=== PATIENT | male | born 1975 | race Two or more races ===

== ENCOUNTER 2021-05-05 09:23 | Inpatient (IN) | payer OTHER ==
[~2021-05-05] VITALS: Ht 177.8 cm; Wt 89.4 kg
--- NOTE | 2021-05-05 07:30 | NUR ---
RN NOTE PATIENT RECEIVED AWAKE ALERT AND ORIENTED X4, ON O2 VIA NC @2LPM O2 SAT OF 98%, ON TELE MONITOR SR NO COMPLAINS OF CHEST PAIN AT THIS TIME, CONTINENT ON BOWEL AND BLADDER, NO S/S OF BLEEDING NOTED, SAFETY MEASURES OBSERVED, CALL LIGHT WITHIN REACH, BED WHEELS LOC. WILL CONTINUE TO MONITOR. Addendum: 05/05/21 at 1815 by SHIRA JEFFERS RN ERROR
--- NOTE | 2021-05-05 09:35 | NUR ---
DR SALAZAR AT THE BEDSIDE
--- NOTE | 2021-05-05 09:40 | NUR ---
CALLED POISON CONTROL [phone] DR. SALAZAR SPEAKING WITH PENNY. RECOMMEND: ATIVAN 50 OF CHAR[place] GO LIGHTLY 1-2 LITER PER HOUR NG OR OG ANTIEMETICS CHECK BOWEL SOUNDS. ABDOMINAL CT NEGATIVE DOES NOT R/O INGESTION. BENZO FOR SEAZURE. LABS CK CMP UDS TY & ASA CONVEYOR TECHNICIAN. TEMP IF >104 PROTECT AIRWAY & BREATHING MINIMUM 6HOURS IF BAG FOUND IN CT THEN OBSERVE UNTIL IT PASSES
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
[2021-05-05] MEDS ORDERED: LORAZEPAM INJ 2 MG/ML VIAL ONE (09:56)
[2021-05-05] MEDS ORDERED: LORAZEPAM INJ 2 MG/ML VIAL IM ONE (10:00)
[2021-05-05 10:01] LABS: BASOPHILS # (AUTO) 0.1 K/uL (0.0-0.2); BASOPHILS % (AUTO) 1.2 % (0.0-2.0); EOSINOPHILS % (AUTO) 0.3 % (0.0-6.0); HEMATOCRIT 42 % (39-51); LYMPHOCYTES # (AUTO) 0.9 K/uL (0.8-4.8); LYMPHOCYTES % (AUTO) 13.7 % (20.0-44.0); MEAN CORPUSCULAR HGB CONC 34 g/dl (31.0-36.0); MEAN CORPUSCULAR VOLUME 83 fL (80-96); MONOCYTES # (AUTO) 0.3 K/uL (0.1-1.30); MONOCYTES % (AUTO) 4.7 % (2.0-12.0); NEUTROPHILS # (AUTO) 5.2 K/uL (1.8-8.9); NEUTROPHILS % (AUTO) 80.1 % (43.0-81.0); PLATELET COUNT (AUTO) 236 K/uL (150-450); RED BLOOD CELL COUNT(AUTO) 5.04 MIL/uL (4.5-6.0); WHITE BLOOD COUNT (AUTO) 6.4 K/uL (4.3-11.0)
[2021-05-05 10:10] LABS: CALCIUM, SERUM 9.1 mg/dL (8.5-10.1); CARBON DIOXIDE 26 mmol/L (21-32); CHLORIDE 102 mmol/L (98-107); CREATININE 1.3 mg/dL (0.6-1.3); GLUCOSE 61 mg/dL (74-106); POTASSIUM 4.1 mmol/L (3.5-5.1); SODIUM SERUM 138 mmol/L (136-145); UREA NITROGEN, BLOOD 25 mg/dL (7-18)
[2021-05-05 10:16] LABS: ALANINE AMINOTRANSFERASE 38 U/L (12-78); ALBUMIN 4.1 g/dL (3.4-5.0); ALKALINE PHOSPHATASE 97 U/L (46-116); ASPARTATE AMINOTRANSFERASE 35 U/L (15-37); BILIRUBIN,DIRECT 0.3 mg/dL (0.0-0.2); BILIRUBIN,TOTAL 1.6 mg/dL (0.2-1.0)
--- NOTE | 2021-05-05 10:16 | NUR ---
STARTED LAC G 18 AND SALINE LOCKED IT.
--- NOTE | 2021-05-05 10:16 | NUR ---
URINE COLLECTED AND SENT TO THE LAB
[2021-05-05 10:17] LABS: ACETAMINOPHEN < 10 ug/ml (10-30); ALCOHOL, BLOOD < 3 mg/dL (0-0)
[2021-05-05 10:26] LABS: BILIRUBIN,URINE SMALL (NEGATIVE); COLOR,URINE ORANGE (YELLOW); LEUKOCYTE ESTERASE ,URINE Negative (NEGATIVE); NITRITE, URINE Negative (NEGATIVE); PROTEIN,URINE 100 mg/dl (NEGATIVE); UGLUCOSE Negative (NEGATIVE); UROBILINOGEN,URINE 0.2 EU/dL (0.2)
[2021-05-05] MEDS ORDERED: IV NS 0.9% 250 ML IV ONE (10:26)
[2021-05-05] MEDS ORDERED: CT SWABBABLE VALVE TRANS SET 1 EA INFUS.SET MC ONE (10:26)
[2021-05-05] MEDS ORDERED: IOHEXOL-300 100 ML VIAL IV ONE (10:26)
[2021-05-05] MEDS ORDERED: ACTIVATED CHARCOAL 25 GM/120 ML TUBE PO ONE (10:30)
--- NOTE | 2021-05-05 10:40 | NUR ---
MOVE SHEET SUBMITTED
--- NOTE | 2021-05-05 10:46 | NUR ---
COVID SWAB DONE AND SENT TO THE LAB
[2021-05-05 11:01] LABS: BACTERIA,URINE None seen /HPF (None Seen); RBC,URINE NONE SEEN /HPF (0-2); SQUAMOUS EPITHELIAL CELL,UR None Seen /HPF (None Seen); WBC,URINE NONE SEEN /HPF (0-3)
[2021-05-05] MEDS ORDERED: FLUO20CA36 PO (11:14)
[2021-05-05] MEDS ORDERED: ACTIVATED CHARCOAL 25 GM/120 ML TUBE ONE (11:15)
--- NOTE | 2021-05-05 12:00 | NUR ---
[facility] CALLED [employer] MANAGER PAGED.
--- NOTE | 2021-05-05 12:23 | NUR ---
NURSING SUP GAVE 107.
--- NOTE | 2021-05-05 12:40 | NUR ---
REPORT GIVEN TO NURSE CAREY FROM TELE/KATIE FLOOR
--- NOTE | 2021-05-05 13:28 | NUR ---
THE PATIENT IS TRANSFERED TO ASSIGNED ROOM IN STABLE CONDITION AND PER ACLS POLICY.
--- NOTE | 2021-05-05 13:40 | NUR ---
RN NOTE RECEIVED PATIENT FROM ER, WILL CONTINUE PLAN OF CARE, PATIENT VTS WNL.
[2021-05-05] MEDS ORDERED: ACETAMINOPHEN 325 MG TABLET PO PRN (14:30)
[2021-05-05] MEDS ORDERED: MAG HYDROX/AL HYDROX/SIMETH 30 ML UDC PO PRN (14:30)
[2021-05-05] MEDS ORDERED: ONDANSETRON HCL/PF 4 MG/2 ML VIAL IVP PRN (14:30)
[2021-05-05] MEDS: IV NS 0.9% 1,000 ML IV PRN ×2 (14:36→21:57)
--- NOTE | 2021-05-05 15:37 | NUR ---
RN NOTE PATIENT TO START WITH AARONLY ABEL MARROQUIN, ORDERS NOTED AND CARRIED OUT.
[2021-05-05 16:00] VITALS: BP 145/78
[2021-05-05] MEDS ORDERED: PEG 3350/NA SULF,BICARB,CL/KCL 4,000 ML BOTTLE PO ONE (17:00)
--- NOTE | 2021-05-05 18:41 | NUR ---
RN NOTE PATIENT COOPERATIVE TO PLAN OF CARE, ALERT AND ORIENTED X3, AWAKE AND ABLE TO VERBALIZE NEEDS, ON ROOM AIR BREATHING EVEN AND UNLABORED, WITH IV LEFT HAND AC NS @150 CC/HR PATENT INFUSING WELL. ON GOLYTELY PO PATIENT TOLERATING WELL, NO S/S OF WITHDRAWAL SYNDROME AT THIS TIME, SAFETY MEASURES OBSERVED, BED WHEELS LOCK, CALL LIGHT WITHIN REACH, WILL CONTINUE TO MONITOR AND ENDORSE TO NOC SHIFT.
--- NOTE | 2021-05-05 19:20 | NUR ---
RN NOTE RECEIVED PATIENT IN BED RESTING ALERT ORIENTED X3 VERBALLY RESPONSIVE ON ROOM AIR O2:98% IV SITE IS ON LEFT AC INTACT PATENT ON IV HYDRATION NS 150CC/HR CONTINET TO BOWEL/BLADDER SAFETY MEASURE IMPLEMENT BED IN LOW POSITON AND LOCKED CALL LIGHT WITHIN REACH,MONITORING FOR WITHDRAW SYMPTOMS CONTINUE TO MONITOR.
[2021-05-05 20:00] VITALS: BP 126/75
[2021-05-06] VITALS: BP 121/67
[2021-05-06 04:00] VITALS: BP 126/77
[2021-05-06] MEDS: IV NS 0.9% 1,000 ML IV PRN (04:52)
[2021-05-06 06:28] LABS: EOSINOPHILS % (AUTO) 1.1 % (0.0-6.0); HEMATOCRIT 36 % (39-51); HEMOGLOBIN 12.5 g/dL (13.5-17.5); LYMPHOCYTES # (AUTO) 1.2 K/uL (0.8-4.8); LYMPHOCYTES % (AUTO) 28.1 % (20.0-44.0); MEAN CORPUSCULAR HGB CONC 34 g/dl (31.0-36.0); MEAN CORPUSCULAR VOLUME 83 fL (80-96); MONOCYTES # (AUTO) 0.4 K/uL (0.1-1.30); MONOCYTES % (AUTO) 9.5 % (2.0-12.0); NEUTROPHILS # (AUTO) 2.6 K/uL (1.8-8.9); NEUTROPHILS % (AUTO) 60.3 % (43.0-81.0); PLATELET COUNT (AUTO) 191 K/uL (150-450); RED BLOOD CELL COUNT(AUTO) 4.37 MIL/uL (4.5-6.0); WHITE BLOOD COUNT (AUTO) 4.2 K/uL (4.3-11.0)
--- NOTE | 2021-05-06 06:56 | NUR ---
RN NOTE PATIENT REMAINS ON ALERT ORIENTED X3 VERBALLY RESPONSIVE NO SOB NOT ACUTE DISTRESS NOTED IV SITE IS ON LEFT AC INTACT PATENT ON IV HYDRATION NS 150 CC/HR KEPT CLEAN AND DRY ALL THE TIME,KEPT COMFORTABLE,ALL NEEDS MET ENDORSE NEXT COMING SHIFT FOR CONTINUATION OF CARE.
[2021-05-06 07:12] LABS: CALCIUM, SERUM 7.9 mg/dL (8.5-10.1); CREATININE 0.8 mg/dL (0.6-1.3); PHOSPHORUS 3.1 mg/dL (2.5-4.9); POTASSIUM 4.1 mmol/L (3.5-5.1)
--- NOTE | 2021-05-06 07:30 | NUR ---
BUSINESS ADMINISTRATION PROGRAM CHAIR NOTE PATIENT IN RESTROOM, JUST HAD NUMBER 2, ALERT ORIENTED X3 VERBALLY RESPONSIVE ON ROOM AIR O2:97%, NO SOB, RESPIRATION UNLABORED, DENIES PAIN AT THIS TIME, IV SITE IS ON LEFT AC INTACT PATENT ON IV HYDRATION NS 150CC/HR, BRP, CARDIAC DIET. NO SKIN ISSUES. SAFETY MEASURE IMPLEMENT BED IN LOW POSITION AND LOCKED, POC DISCUSSED, CALL LIGHT WITHIN REACH,MONITORING FOR WITHDRAWAL SYMPTOMS, WILL CONTINUE TO MONITOR.
[2021-05-06 08:00] VITALS: BP 115/79
--- NOTE | 2021-05-06 09:55 | NUR ---
RN NOTES RECEIVED A CALL FROM POISON CONTROL [[phone]]. SPOKE WITH MINAL, UPDATE GIVEN, PATIENT COULD CLEARED FOR TOXICOLOGY. CASE CLOSED.
--- NOTE | 2021-05-06 10:37 | NUR ---
RN NOTES PATIENT PULLED OUT HIS IV, DRESSED UP AND WENT AMA DESPITE EXPLAINING THE RISK AND BENEFIT. PATIENT ALERT, ORIENTED, NOT IN ANY DISTRESS. AMA PAPER SIGNED. PATIENT AMBULATED TO [facility]. BELONGINGS RETURNED, PAPER WORKS SIGNED. ADVISED TO GO TO NEAREST EMERGENCY ROOM FOR ANY UNTOWARD SYMPTOMS. NURSING GRUBBER, CHARGE NURSE AND VERONICA MARROQUIN CELLULAR EQUIPMENT INSTALLER INFORMED. Addendum: 05/06/21 at 1237 by JAZMINE GOYAL RN ADDENDUM INCIDENT REPORT ON FILE Unique Id: [id number]
== END 2021-05-06 10:40 | disposition left against medical advice (07) | DRG 812 ==
LOC: ER 09:29 → TELE1 12:52
PROVIDERS: ADMIT Nurse Practitioner Acute Care; ATTEND Nurse Practitioner Acute Care
DX: T43.621A Poisoning by amphetamines, accidental (unintentional), initial encounter (principal); M62.82 Rhabdomyolysis; Y92.89 Other specified places as the place of occurrence of the external cause; R74.01 Elevation of levels of liver transaminase levels; Z20.822 Contact with and (suspected) exposure to COVID-19; F19.10 Other psychoactive substance abuse, uncomplicated
CPT/HCPCS: 36415; 80048-TC; 80061-TC; 80076-TC; 81001; 82550-TC; 82553; 83735-TC; 84100-TC; 85025-TC; 87081-TC; C9803; G0378; G0480; J2060; J7030; J7050; Q9967